=== PATIENT | female | born 1975 | race Caucasian/White ===

== ENCOUNTER 2020-08-14 10:30 | Outpatient (CLI) | payer BC, SELFPAY ==
--- NOTE | ~2020-08-14 | MM_ITS ---
EXAMINATION: MM screening mireya BI w bonilla HISTORY: Screening mammogram TECHNIQUE: Craniocaudal and mediolateral oblique 3-D tomosynthesis images were obtained and synthetic 2-D images were generated. CAD analysis was submitted and interpreted. COMPARISON: 08/29/2019 diagnostic right digital mammogram 08/04/2019, 07/15/2018 bilateral digital screening mammogram examinations 07/13/2017 diagnostic right digital mammogram and limited right breast ultrasound 07/06/2017, 07/02/2016 bilateral digital screening mammogram examinations BREAST PARENCHYMAL COMPOSITION: The breasts are heterogeneously dense, which may obscure small masses . FINDINGS: Scattered benign-appearing calcifications are present. Benign appearing stable circumscribed intramammary lymph nodes are noted on the right. There is a 9.5 mm circumscribed mass with halo sign in the inner anterior aspect of the lower outer q uadrant of the right breast (craniocaudal Tomosynthesis image 14/72; MLO Tomosynthesis image 20/72), likely a benign cyst. Comparison 11.8 mm circumscribed low-density oval opacity with halo sign in the outer mid right breas t (craniocaudal Tomosynthesis image 38/77). Additional masses may be obscured by the heterogeneously dense bilateral fibroglandular stroma. There is no evidence of suspicious mass, calcification, or architectural distortion to suggest malign kelly in either breast. There has been no suspicious interval change. IMPRESSION: 1. No mammographic evidence of malignancy. 2. Recommend routine screening mammography in one year. BI-RADS Category 2: Benign finding(s). Reviewed, dictated and finalized at location A. ING ROLL OPERATOR HEAVY DUTY
== END 2020-08-14 10:31 | disposition home or self-care (01) ==
LOC: ANHIMG 10:33
PROVIDERS: PCP Physician Assistant; Visit Provider Obstetrics & Gynecology
DX: Z12.31 Encounter for screening mammogram for malignant neoplasm of breast (principal)
CPT/HCPCS: 77063; 77067

== ENCOUNTER → 2020-10-30 08:07 | Outpatient (CLI) | payer BC, SELFPAY ==
[2020-10-30 19:41] LABS: SARS-CoV-2 RNA PCR Negative
== END ==
PROVIDERS: PCP Physician Assistant; Visit Provider Physician Assistant
DX: R68.89 Other general symptoms and signs (principal); Z20.822 Contact with and (suspected) exposure to COVID-19
CPT/HCPCS: C9803; U0003; U0005

== ENCOUNTER → 2021-04-12 08:27 | Outpatient (CLI) | payer BC, SELFPAY ==
--- NOTE | ~2021-04-12 | MR_ITS ---
EXAMINATION: MR elbow RT wo con DATE: 04/12/2021 09:20 INDICATION: Right elbow pain and weakness since lifting injury 5 months prior. Lateral epicondylitis. TECHNIQUE: Magnetic resonance imaging (MRI) of the right elbow was performed without intravenous cont rast. Sequences included coronal, axial, and sagittal PD-weighted FS FSE and coronal, axial, and sagi ttal PD-weighted FSE. COMPARISON: None FINDINGS: Osseous/other: Normal alignment. Normal marrow signal with no marrow edema, fracture, osteochondral lesion or abnor mal marrow replacing process. Mild osteoarthritis with minimal nonuniform joint space narrowing with mild partial-thickness cartilage loss with smooth chondral surfaces. Tendons: Triceps, biceps brachii and brachialis tendons are normal. Common flexor tendon wad is normal. Mild thickening and mild increased intrasubstance signal of the common extensor tendon wad consistent with mild tendinopathy. There is there appears to be a tiny focus of fluid signal intensity within the pr oximal tendon bundle consistent with a very mild partial thickness intrasubstance tear. Ligaments: The medial and lateral collateral ligament complexes are normal. Cubital tunnel: Cubital tunnel is unremarkable with normal signal and caliber of the ulnar nerve. Fluid: Physiologic amount of fluid the elbow joint. IMPRESSION: 1. Mild tendinopathy and very mild partial-thickness tear at the lateral epicondylar origin of the co mmon extensor tendon wad. 2. 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 Reviewed, dictated and finalized at location A. IMPRESSION: 1. Mild tendinopathy and very mild partial-thickness tear at the lateral epicon dylar origin of the common extensor tendon wad. 2. 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
== END ==
PROVIDERS: PCP Physician Assistant; Visit Provider Orthopaedic Surgery Hand Surgery
DX: M77.11 Lateral epicondylitis, right elbow (principal); S56.511A Strain of other extensor muscle, fascia and tendon at forearm level, right arm, initial encounter; M19.021 Primary osteoarthritis, right elbow
CPT/HCPCS: 73221

== ENCOUNTER → 2021-07-18 12:11 | Outpatient (CLI) | payer BC, SELFPAY ==
--- NOTE | ~2021-07-18 | MR_ITS ---
EXAMINATION: MR hip RT w con DATE: 07/18/2021 14:06 INDICATION: Left hip pain. Assess for labral tear. TECHNIQUE: Magnetic resonance (MR) arthrogram of the left hip was performed following intra-articular gadolinium contrast injection and without intravenous contrast. Details of the hip joint injection h ave been dictated separately. Sequences included small field of view of the left hip with axial and s agittal T1-weighted FS SE and T2-weighted FS FSE and coronal T1-weighted SE and T2-weighted FS FSE. Additional T1-weighted FGRE images in a radial pattern oriented orthogonal to the acetabular rim were obtained for evaluation of the labrum. COMPARISON: None. FINDINGS: Bones/labrum/cartilage: Alignment is normal. No fracture, avascular necrosis or pathologic marrow replacing process. Labrum is normal. Articular cartilage appears normal with no appreciable joint space narrowing. There is how ever a small region of mild subarticular cystic change at the anterosuperior right acetabulum suggest ing overlying high-grade chondromalacia. Moderate disc height loss at L5-S1 with degenerative fibrova scular endplate changes on the inferior endplate of L5. Fluid: Physiologic amount of fluid in the left hip joint. There is some extravasation of the injected contra st from the right hip which tracks along the margin of the right quadratus femoris muscle. No bursiti s or other abnormal fluid collections. Soft tissues: Normal and symmetric muscle bulk and signal in the pelvis and visualized proximal thighs. The bilater al iliopsoas, gluteal and proximal hamstring tendons are normal. 2.2 cm right adnexal cyst. Cervical nabothian cysts measuring up to 1 cm at the cervix. Limited evaluation of visceral organs of the pelv is is otherwise unremarkable. No pathologically enlarged pelvic/inguinal lymphadenopathy. IMPRESSION: 1. Small region of high-grade chondromalacia with mild underlying subarticular cystic change at the a nterior right acetabulum. 2. Mild to moderate lumbosacral spondylosis. Reviewed, dictated and finalized at location A. IMPRESSION: 1. Small region of high-grade chondromalacia with mild underlying subarticular cystic change at the anterior right acetabulum. 2. Mild to moderate lumbosacral spondylosis.
--- NOTE | ~2021-07-18 | XR_ITS ---
EXAMINATION: XR fl inj hip RT for MR/CT DATE: 07/18/2021 13:21 INDICATION: Right hip pain TECHNIQUE: A time-out was performed to verify the patient's name, date of , and procedure to b e performed. The procedure including the risks and benefits was discussed with the patient. Risks dis cussed included bleeding and infection. The patient understood the risks and agreed to proceed. The s kin overlying the right hip joint was prepared and draped in usual sterile fashion. The skin and subc utaneous tissues were infiltrated with 1% lidocaine for local anesthesia. A 22 G needle was advanced under fluoroscopic guidance into the joint. Injectate consisting of 12 mL of 1:200 0.1 mmol/kg Multi angel, 1:4 1% lidocaine, and 1:4 Omnipaque 240 was instilled. The needle was removed and the entry si te was cleaned and dressed. There were no immediate complications. Fluoroscopy exposure time was 0.5 minutes. The DAP for this procedure was 2.739 Gycm2. FINDINGS: Real-time fluoroscopy demonstrates the needle and contrast in the right hip joint. IMPRESSION: 1. Successful right hip joint injection of contrast for subsequent MR arthrography. Reviewed, dictated and finalized at location B. CIENCY ANALYST IMPRESSION: 1. Successful right hip joint injection of contrast for subsequent MR arthrogra phy.
== END ==
PROVIDERS: PCP Physician Assistant
DX: M47.896 Other spondylosis, lumbar region (principal)
CPT/HCPCS: 20610; 73722; 77002; A9577; Q9966

== ENCOUNTER → 2021-07-21 09:15 | Outpatient (CLI) | payer BC, SELFPAY ==
--- NOTE | ~2021-07-21 | CT_ITS ---
EXAMINATION: CT soft tissue neck w con DATE: 07/21/2021 09:41 INDICATION: Lymphadenopathy of neck, localized. TECHNIQUE: Computed tomography (CT) of the neck was performed with 75 mL Omnipaque-350 intravenous co ntrast. Automated exposure control and iterative reconstruction technique were employed. The dose-humphrey gth product was 348.38 mGy-cm. COMPARISON: None FINDINGS: The cervical carotid arteries are normal. There is a skin marker in right lateral neck. The re is no abnormal mass in this area. There are no pathologically enlarged lymph nodes. The mastoid ai r cells are normal. There is chronic deformity of medial wall of left maxillary sinus. There is mild cervical spondylosis. IMPRESSION: 1. No abnormal neck mass or lymphadenopathy. Reviewed, dictated and finalized at location A. ASTRUCTURE DESIGN ENGINEER
== END ==
PROVIDERS: PCP Physician Assistant; Visit Provider Physician Assistant
DX: R59.0 Localized enlarged lymph nodes (principal)
CPT/HCPCS: 70491; Q9967

== ENCOUNTER → 2021-08-04 13:05 | Outpatient (CLI) | payer BC, SELFPAY ==
--- NOTE | ~2021-08-04 | US_ITS ---
EXAMINATION: US soft tissue head and neck DATE: 08/04/2021 13:20 INDICATION: Lymphadenopathy of head and neck. TECHNIQUE: Multiple grayscale and Doppler ultrasound images of the neck were obtained. COMPARISON: CT neck 07/21/2021 FINDINGS: In the patient's area of concern in right neck, there is a 1.7 x 1.1 x 0.3 cm subcutaneous lipoma. IMPRESSION: 1. Small subcutaneous lipoma in the patient's area of concern in right neck. Reviewed, dictated and finalized at location B. HEEL
== END ==
PROVIDERS: PCP Physician Assistant; Visit Provider Nurse Practitioner Family
DX: R22.1 Localized swelling, mass and lump, neck (principal)
CPT/HCPCS: 76536

== ENCOUNTER 2021-08-06 12:19 | Outpatient (CLI) | payer BC, SELFPAY ==
--- NOTE | ~2021-08-06 | MM_ITS ---
EXAMINATION: MM diagnostic mireya BI w bonilla HISTORY: Cysts of the breasts TECHNIQUE: Craniocaudal, mediolateral, and mediolateral oblique 3-D tomosynthesis images of the breas ts were performed and synthetic 2-D images were generated. CAD analysis was submitted and interpreted . COMPARISON: 08/14/2020, 08/29/2019, 08/04/2019, 07/15/2018 BREAST PARENCHYMAL COMPOSITION: The breasts are heterogeneously dense, which may obscure small masses . FINDINGS: There are waxing and waning bilateral obscured low density masses in the breasts which have the appearance of cysts. None demonstrate suspicious interval change. There is no architectural dist ortion or suspicious calcification. IMPRESSION: 1. No mammographic evidence of malignancy. 2. Recommend routine screening mammography in one year. BI-RADS Category 2: Benign finding(s). Reviewed, dictated and finalized at location A. PRESS OPERATOR
== END 2021-08-06 12:20 | disposition home or self-care (01) ==
LOC: ANHIMG 12:22
PROVIDERS: PCP Physician Assistant; Visit Provider Obstetrics & Gynecology
DX: N60.09 Solitary cyst of unspecified breast (principal)
CPT/HCPCS: 77062; 77066; G0279

== ENCOUNTER 2022-12-29 10:12 | Outpatient (CLI) | payer BC, SELFPAY ==
--- NOTE | ~2022-12-29 | MM_ITS ---
EXAMINATION: MM screening [facility] BI w bonilla HISTORY: Screening mammogram TECHNIQUE: Craniocaudal and mediolateral oblique 3-D tomosynthesis images were obtained and synthetic 2-D images were generated. CAD analysis was submitted and interpreted. COMPARISON: 08/06/2021, 08/14/2020, 08/19/2019 BREAST PARENCHYMAL COMPOSITION: The breasts are heterogeneously dense, which may obscure small masses . FINDINGS: Again seen are multiple similar appearing, waxing and waning, bilateral breast masses. No s uspicious mass, calcification, or architectural distortion are identified in either breast to suggest malignancy. There has been no suspicious interval change. IMPRESSION: 1. No mammographic evidence of malignancy. 2. Recommend routine screening mammography in one year. BI-RADS Category 2: Benign finding(s). Reviewed, dictated and finalized at location A.
== END 2022-12-29 10:13 | disposition home or self-care (01) ==
PROVIDERS: PCP Physician Assistant; Visit Provider Physician Assistant
DX: Z12.31 Encounter for screening mammogram for malignant neoplasm of breast (principal)
CPT/HCPCS: 77063; 77067

== ENCOUNTER 2023-04-16 03:03 | Day surgery (SDC) | payer BC, SELFPAY ==
[2023-04-07 13:29] VITALS: BMI 28.8
[2023-04-16] MEDS: LACTATED RINGERS 1,000 ML 150 ML IV CONT (06:27)
[2023-04-16 06:28] VITALS: BP 124/75; PULSE 89; RESP 16; TEMP 36.3; O2SAT 99; BMI 28.0
--- NOTE | 2023-04-16 07:14 | P.PNAN_ITS ---
Anes - Initial Pre Proc Eval Procedure: Operation Date: 04/16/23 07:30 Proposed Procedures p Screening Colonoscopy - Mandeep Crews MD Date/Time: 04/16/23 07:14 Surgeon: Mandeep Crews MD Pre Op Diagnosis: neoplasm screening Patient Data Age: 47 Gender: F Height: 1.64 m Weight: 75.9 kg Last Vital Signs Temp 97.3 F L 04/16/23 06:28 Pulse 89 04/16/23 06:28 Resp 16 04/16/23 06:28 BP 124/75 04/16/23 06:28 Pulse Ox 99 04/16/23 06:28 O2 Del Method Room Air 04/16/23 06:28 Allergies Allergy/AdvReac Type Severity Reaction Status Date / Time amoxicillin AdvReac Other Verified 04/16/23 06:17 Home Medications Medication Instructions Recorded Confirmed Type alprazolam 0.25 mg tablet 0.25 mg PO TID PRN Anxiety 04/07/23 04/16/23 History omeprazole 20 mg capsule,delayed 20 mg PO DAILY 04/07/23 04/16/23 History release Patient hx anesthesia problems: none Family hx anesthesia problems: none Results Review: All pre-operative results and documents have been reviewed as part of the pre- operative evaluation. [facility] Family History Family History (System 07/15/21 @ 09:07 by Kiana Prater) Father Family history of gastrointestinal disorder Hypertension Mother Family history of osteoarthritis Other Family history of arthritis Social History Social History (System 07/15/21 @ 09:07 by Kiana Prater) Smoking packs per day: 1 Smoking cigarettes per day: 20.0 Years smoked: 36 Smoking pack-years: 36.00 Smoking status: Current every day smoker Tobacco type: cigarettes Alcohol intake: current Drinks per week: 10 Alcohol use details: WINE/BEER Substance use: current Substance use type: marijuana Other substance usage details: OCC. Living arrangements: with family Spiritual care concerns: No Anes - Eval Final PreProcedure Day of Procedure 04/16/23 07:14 Patient weight: normal Heart: regular rate and rhythm Lungs: clear to auscultation Airway: Mallampati scale class II Neurological: alert and oriented Last oral intake: >/= 8 hours ASA classification: II Emergent: no Anesthetic plan: proceed Anesthesia type and monitoring: general GIVS and standard monitoring Results Review: All pre-operative results and documents have been reviewed as part of the pre- operative evaluation. Informed Consent: The patient's anesthetic plan and its attendant risks and benefits were discussed with the patient/family/POA. Questions were solicited and answers provided to the satisfaction of the patient/family/POA.
--- NOTE | 2023-04-16 07:14 | PM.HPGS ---
History of Present Illness History of Present Illness Consent: Risks, benefits, and alternatives have been discussed and questions answered. Patient agrees to proceed with procedure. Chief complaint: neoplasm screening Narrative: Brea Tavera is a 47 year old female Presents for screening colonoscopy. Patient's current weight appetite and bowel movements are normal. Patient denies abdominal pain. She has had no bleeding. Family history noncontributory. Review of Systems Review of Systems: Review of systems noncontributory. [facility] Family History Family History (System 07/15/21 @ 09:07 by Kiana Prater) Father Family history of gastrointestinal disorder Hypertension Mother Family history of osteoarthritis Other Family history of arthritis Social History Social History (System 07/15/21 @ 09:07 by Kiana Prater) Smoking packs per day: 1 Smoking cigarettes per day: 20.0 Years smoked: 36 Smoking pack-years: 36.00 Smoking status: Current every day smoker Tobacco type: cigarettes Alcohol intake: current Drinks per week: 10 Alcohol use details: WINE/BEER Substance use: current Substance use type: marijuana Other substance usage details: OCC. Living arrangements: with family Spiritual care concerns: No Meds Home Medications and Allergies Home Medications Medication Instructions Recorded Confirmed Type alprazolam 0.25 mg tablet 0.25 mg PO TID PRN Anxiety 04/07/23 04/16/23 History omeprazole 20 mg capsule,delayed 20 mg PO DAILY 04/07/23 04/16/23 History release Allergies Allergy/AdvReac Type Severity Reaction Status Date / Time amoxicillin AdvReac Other Verified 04/16/23 06:17 Vital Signs Vital Signs - 24 hr 04/16/23 06:28 Temperature 97.3 F L Pulse Rate 89 Respiratory Rate 16 Blood Pressure 124/75 Pulse Oximetry 99 Oxygen Delivery Room Air Exam Narrative: Physical exam reveals patient to be alert. Vital signs stable. HEENT exam is unremarkable. Patient is anicteric. Lungs are clear to auscultation and percussion. Heart is without murmur or extra sounds. Abdomen bowel sounds present soft nontender with no organomegaly. Digital external rectal exam is normal. Assessment and Plan Assessment and plan (1) Encounter for screening colonoscopy: Code(s): Z12.11 - Encounter for screening for malignant neoplasm of colon Status: Acute Assessment and Plan: Patient presents for screening colonoscopy. She appears to be at average risk for colon polyps. Further recommendations may be given after endoscopy.
[2023-04-16 07:47] VITALS: BP 110/65; PULSE 71; RESP 18; O2SAT 99
[2023-04-16 07:57] VITALS: BP 103/65; PULSE 77; RESP 18; O2SAT 99
[2023-04-16 08:07] VITALS: BP 124/89; PULSE 74; RESP 18; O2SAT 100
== END 2023-04-16 08:20 | disposition home or self-care (01) ==
PROVIDERS: PCP Physician Assistant; Visit Provider Internal Medicine Gastroenterology
PROC: 0DJD8ZZ Inspection of Lower Intestinal Tract, Via Natural or Artificial Opening Endoscopic (ICD-10-PCS; CPT 45378; principal; 2023-04-16 07:30)
DX: Z12.11 Encounter for screening for malignant neoplasm of colon (principal); D12.5 Benign neoplasm of sigmoid colon; K63.5 Polyp of colon; K64.8 Other hemorrhoids; F17.210 Nicotine dependence, cigarettes, uncomplicated; F12.90 Cannabis use, unspecified, uncomplicated
CPT/HCPCS: 45385; 88305; J2704; J7120

== ENCOUNTER 2024-03-27 14:15 | Outpatient (CLI) | payer OTHER, SELFPAY ==
--- NOTE | ~2024-03-27 | MM_ITS ---
EXAMINATION: MM screening mireya BI w bonilla HISTORY: Screening TECHNIQUE: Craniocaudal and mediolateral oblique 3-D tomosynthesis images were obtained and synthetic 2-D images were generated. CAD analysis was submitted and interpreted. COMPARISON: Comparison to multiple prior studies sequentially, with oldest reviewed study dated 10/2017. BREAST PARENCHYMAL COMPOSITION: Dense: The breasts are heterogeneously dense, which may obscure small masses FINDINGS: There are developing obscured masses in the upper central aspect of the right breast and up per outer quadrant of the left breast. There are no suspicious calcifications. IMPRESSION: 1. Developing bilateral breast masses obscured by dense fibroglandular tissue. 2. Additional mammographic views and possible breast ultrasound are recommended. BI-RADS Category 0: Incomplete: Needs additional imaging evaluation. Reviewed, dictated and finalized at location B. IMPRESSION: 1. Developing bilateral breast masses obscured by dense fibroglandular tissue. 2. Additional mammographic views and possible breast ultrasound are recommended . BI-RADS Category 0: Incomplete: Needs additional imaging evaluation.
== END 2024-03-27 14:16 | disposition home or self-care (01) ==
LOC: ANHIMG 14:15
PROVIDERS: PCP Physician Assistant; Visit Provider Obstetrics & Gynecology
DX: Z12.31 Encounter for screening mammogram for malignant neoplasm of breast (principal); R92.8 Other abnormal and inconclusive findings on diagnostic imaging of breast
CPT/HCPCS: 77063; 77067

== ENCOUNTER 2024-04-12 13:21 | Outpatient (CLI) | payer OTHER, SELFPAY ==
--- NOTE | ~2024-04-12 | MMUS_ITS ---
EXAMINATION: MM diagnostic mireya BI w bonilla, US breast BI complete HISTORY: Bilateral breast masses seen on mammography. TECHNIQUE: Additional 3-D tomosynthesis images of the breasts were performed and synthetic 2-D images were generated. CAD analysis was submitted and interpreted. High resolution bilateral complete breas t ultrasound was performed. COMPARISON: Comparison to multiple prior studies sequentially, with oldest reviewed study dated 07/15. BREAST PARENCHYMAL COMPOSITION: Dense: The breasts are heterogeneously dense, which may obscure small masses FINDINGS: MAMMOGRAPHIC FINDINGS: There are multiple masses in the upper central aspect of the right breast, partially obscured by fibr oglandular tissue. There are asymmetries in the left breast, although no discrete mass is identified. There are no suspicious calcifications. ULTRASOUND: Complete bilateral US of all 4 quadrants of the breasts and retroareolar region was reviewed. There a re multiple bilateral cysts throughout both breasts. There are multiple adjacent cysts in the right b reast, largest measuring approximately 2.7 cm at 10:00, 5 cm from the nipple. There is multiple scatt ered cysts of the left breast as well as mildly prominent ducts. Largest left breast cyst measures ap proximately 1.7 cm at 12:00, 4 cm from the nipple. There are no suspicious masses in either breast to suggest malignancy. IMPRESSION: 1. Multiple benign cyst and mildly prominent ducts in both breasts. No suspicious abnormalities in ei ther breast to suggest malignancy. 2. Routine yearly screening mammogram and regular clinical breast examination are recommended. BI-RADS Category 2: Benign finding(s). Reviewed, dictated and finalized at location B. IMPRESSION: 1. Multiple benign cyst and mildly prominent ducts in both breasts. No suspicio us abnormalities in either breast to suggest malignancy. 2. Routine yearly screening mammogram and regular clinical breast examination a re recommended. BI-RADS Category 2: Benign finding(s).
== END 2024-04-12 13:22 | disposition home or self-care (01) ==
PROVIDERS: PCP Physician Assistant; Visit Provider Obstetrics & Gynecology
DX: N63.10 Unspecified lump in the right breast, unspecified quadrant (principal); N63.20 Unspecified lump in the left breast, unspecified quadrant
CPT/HCPCS: 76641; 77062; 77066; G0279

== ENCOUNTER 2024-04-24 09:42 | Outpatient (CLI) | payer OTHER, SELFPAY ==
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
== END 2024-04-24 09:43 ==
PROVIDERS: PCP Physician Assistant; Visit Provider Physician Assistant
DX: M19.071 Primary osteoarthritis, right ankle and foot (principal)
CPT/HCPCS: 73630

== ENCOUNTER 2024-12-12 12:36 | Outpatient (CLI) | payer OTHER, SELFPAY ==
--- NOTE | ~2024-12-12 | XR_ITS ---
EXAM: XR_CERV2-3V_CR DATE: 12/12/2024 13:04 HISTORY: Cervical radiculopathy, fall 2 weeks ago, numbness and tingling in the fifth finger of the r ight hand, numbness on the right side of the neck, face, and right shoulder. COMPARISON: None available. FINDINGS: Craniocervical association and atlantoaxial joint are aligned, with mild degenerative torres ge. No prevertebral soft tissue swelling. Trace anterolistheses at C3-4 and C4-5. Vertebral body heig hts are maintained. Normal disc spaces. Disc space narrowing and marginal osteophytosis, mild at C3-4 and moderate at C4-5. Mild multilevel facet hypertrophy and sclerosis. IMPRESSION: No acute fracture or traumatic malalignment detected in the cervical spine. If symptoms persist or in jury history is concerning, consider CT and/or MR of the cervical spine. Trace anterolistheses at C3-C4 and C4-5, presumably on a degenerative basis. Multilevel degenerative disc disease, moderate at C4-5. Mild multilevel facet arthropathy. Reviewed, dictated and finalized at location K. IMPRESSION: No acute fracture or traumatic malalignment detected in the cervical spine. If symptoms persist or injury history is concerning, consider CT and/or MR of the cervical spine. Trace anterolistheses at C3-C4 and C4-5, presumably on a degenerative basis. Multilevel degenerative disc disease, moderate at C4-5. Mild multilevel facet a rthropathy.
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
== END 2024-12-12 12:37 | disposition home or self-care (01) ==
PROVIDERS: PCP Physician Assistant; Visit Provider Physician Assistant
DX: M54.12 Radiculopathy, cervical region (principal); S69.91XA Unspecified injury of right wrist, hand and finger(s), initial encounter; X58.XXXA Exposure to other specified factors, initial encounter; M50.321 Other cervical disc degeneration at C4-C5 level
CPT/HCPCS: 72040; 73130

== ENCOUNTER 2025-05-09 11:45 | Outpatient (CLI) | payer OTHER, SELFPAY ==
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
== END 2025-05-09 11:46 | disposition home or self-care (01) ==
LOC: MICIMG 11:48
PROVIDERS: PCP Physician Assistant; Visit Provider Physician Assistant
DX: M25.541 Pain in joints of right hand (principal); V18.2XXA Unspecified pedal cyclist injured in noncollision transport accident in nontraffic accident, initial encounter
CPT/HCPCS: 73070; 73110; 73130

== ENCOUNTER 2025-05-10 14:57 | Outpatient (CLI) | payer OTHER, SELFPAY ==
--- NOTE | ~2025-05-10 | MM_ITS ---
EXAMINATION: MM screening mireya BI w bonilla HISTORY: Screening TECHNIQUE: Craniocaudal and mediolateral oblique 3-D tomosynthesis images were obtained and synthetic 2-D images were generated. CAD analysis was submitted and interpreted. COMPARISON: Comparison to multiple prior studies sequentially, with oldest reviewed study dated , 07/15/2018 BREAST PARENCHYMAL COMPOSITION: The breasts are heterogeneously dense, which may obscure small masses. FINDINGS: There is no evidence of suspicious mass, calcification, or architectural distortion to suggest malignancy in either breast. IMPRESSION: 1. No mammographic evidence of malignancy. 2. Recommend routine screening mammography in one year. BI-RADS Category 1: Negative Reviewed, dictated and finalized at location B.
== END 2025-05-10 14:58 | disposition home or self-care (01) ==
LOC: ANHFOHIMG 15:00
PROVIDERS: PCP Physician Assistant; Visit Provider Obstetrics & Gynecology
DX: Z12.31 Encounter for screening mammogram for malignant neoplasm of breast (principal)
CPT/HCPCS: 77063; 77067